=== PATIENT | male | born 2000 | race Caucasian/White ===

== ENCOUNTER 2018-07-11 19:20 | Emergency (ER) | payer BC ==
[~2018-07-11] VITALS: Ht 180.3 cm; Wt 118.2 kg
[2018-07-11 19:34] VITALS: TEMP 97.8
[2018-07-11 21:15] LABS: BASO # 0.1 (0.0-0.2); BASO % 0.7 % (0.0-2.0); EOS # 0.4 (0.0-0.7); EOS % 5.3 % (0-4.0); GRAN # 4.8 (1.4-6.5); GRAN % 57.6 % (42.2-75.2); HEMATOCRIT 46.5 % (36.0-47.0); LYMPH # 2.2 (1.2-3.4); LYMPH % 26.1 % (20.0-51.0); MEAN CELL VOLUME 85 fl (80.0-95.0); MEAN CORPUSCULAR HEMOGLOBIN 29 pg (26.0-32.0); MEAN CORPUSCULAR HGB CONC 34 g/dl (33.0-37.0); MEAN PLATELET VOLUME 9.9 fl (7.4-10.4); MONO # 0.8 (0.1-0.6); MONO % 9.9 % (1.7-9.3); PLATELET COUNT 258 K/mm3 (130-400); RED BLOOD COUNT 5.48 M/mm3 (4.20-5.60); REDCELL DISTRIBUTION WIDTH-CV 12.5 % (11.5-14.5)
[2018-07-11 21:17] LABS: COLLECTION METHOD CLEAN CATCH
[2018-07-11 21:25] LABS: MUCOUS Present /lpf; PH 6 (5-8); SQUAMOUS EPITHELIAL None Seen /hpf; URINE APPEARANCE Clear; URINE BACTERIA None Seen /hpf; URINE BILIRUBIN Negative (NEGATIVE); URINE BLOOD Negative (NEGATIVE); URINE COLOR Yellow; URINE GLUCOSE Negative (NEGATIVE); URINE KETONE Negative (NEGATIVE); URINE LEUKOCYTE ESTERASE Negative (NEGATIVE); URINE NITRATE Negative (NEGATIVE); URINE PROTEIN(semi-quant) Negative (NEGATIVE); URINE RBC 0-2 /hpf; URINE UROBILINOGEN Negative (NEGATIVE)
[2018-07-11 21:28] LABS: ALBUMIN 4.7 gm/dL (3.5-5.0); BILIRUBIN,TOTAL 0.5 mg/dL (0.0-1.0); C-REACTIVE PROTEIN 0.8 mg/dL (0.0-0.9); CALCIUM 9.5 mg/dL (8.4-10.2); POTASSIUM 3.7 mmol/L (3.4-5.0); TOTAL PROTEIN 8.2 gm/dL (6.4-8.2)
[2018-07-11] MEDS ORDERED: ZOFRAN ODT4 MG PO ×2 (21:33→22:15)
[2018-07-11 21:45] VITALS: BP 132/67
[2018-07-11 21:45] LABS: ERYTHROCYTE SEDIMENTATION RATE 1 mm/hr (0-15)
[2018-07-11] MEDS ORDERED: SYNTHROID0.088 MG/T PO (21:47)
[2018-07-11] MEDS ORDERED: VYVANSE40 MG PO (21:47)
[2018-07-11] MEDS ORDERED: LEXAPRO 10MG10 MG PO (21:48)
[2018-07-11 22:16] VITALS: PULSE 80
== END 2018-07-11 22:21 | disposition home or self-care (01) ==
LOC: COL.ER 19:20
PROVIDERS: Physician Assistant
DX: R10.32 Left lower quadrant pain (principal); E03.9 Hypothyroidism, unspecified; F90.9 Attention-deficit hyperactivity disorder, unspecified type; F41.9 Anxiety disorder, unspecified; F32.9 Major depressive disorder, single episode, unspecified; Z90.89 Acquired absence of other organs